=== PATIENT | female | born 2000 | race Caucasian/White ===

== ENCOUNTER 2020-11-06 10:21 | Outpatient (CLI) | payer BC, SELFPAY ==
[2020-11-11 00:12] LABS: NIL 0.02 IU/mL; Quantiferon TB Plus, 1T NEGATIVE (NEGATIVE); TB1-NIL <0.00 IU/mL
== END 2020-11-06 10:22 | disposition home or self-care (01) ==
LOC: ANHLAB 10:26
PROVIDERS: PCP Internal Medicine; Visit Provider Nurse Practitioner
DX: Z11.1 Encounter for screening for respiratory tuberculosis (principal)
CPT/HCPCS: 36415; 86480

== ENCOUNTER 2023-07-06 11:47 | Outpatient (CLI) | payer BC, SELFPAY ==
--- NOTE | ~2023-07-06 | MMUS_ITS ---
EXAMINATION: MM diagnostic re BI w [place], US breast RT limited HISTORY: Erythema, tenderness, lump for a few weeks, diminishing in size. (I was asked to review the completed diagnostic bilateral mammographic views performed after a right breast targeted ultrasound examination, while the initial radiologist was occupied with a special pro cedure.) TECHNIQUE: ML, MLO and CC 3-D tomosynthesis images of both breasts were performed and synthetic 2-D i mages were generated. CAD analysis was submitted and interpreted. High resolution targeted right 5:00 periareolar breast ultrasound was performed. COMPARISON: 05/04/2014 complete bilateral breast ultrasound examination, reported normal. BREAST PARENCHYMAL COMPOSITION: The breasts are extremely dense, which lowers the sensitivity of mamm ography. FINDINGS: MAMMOGRAPHIC FINDINGS: There is mild focal skin thickening in the right inferior periareolar area compared to the left. Otherwise no suspicious mass or architectural distortion, malignant calcification, skin thickening or retraction is detected. ULTRASOUND: At the area of clinical complaint at the right 5:00 periareolar area there is an approximately 13 x 8 .5 by 20 mm irregular hypoechoic area with central approximately 4 x 8 mm more sonolucent area with t hrough transmission prominent posterior enhancement, suggesting this is relatively cystic or fluid in nature. Abscess is considered unlikely. The history indicates that there has been some decrease in s ize which would further support benign process, in addition to the patient's relatively young age. Consider treatment for breast abscess with follow-up ultrasound imaging after an appropriate interval . IMPRESSION: 1. BI-RADS Category 3: Probably benign finding. Probable breast abscess at 5:00 subareolar area 2. Short-term follow-up ultrasound examination is recommended after appropriate medical therapy. BI-RADS category 3, probably benign findings. Reviewed, dictated and finalized at location [facility]. IMPRESSION: 1. BI-RADS Category 3: Probably benign finding. Probable breast abscess at 5:00 subareolar area 2. Short-term follow-up ultrasound examination is recommended after appropriate medical therapy. BI-RADS category 3, probably benign findings.
== END 2023-07-06 11:48 ==
PROVIDERS: PCP Nurse Practitioner; Visit Provider Nurse Practitioner
DX: N63.10 Unspecified lump in the right breast, unspecified quadrant (principal); R92.8 Other abnormal and inconclusive findings on diagnostic imaging of breast
CPT/HCPCS: 76642; 77062; 77066; G0279

== ENCOUNTER 2023-07-13 09:27 | Outpatient (CLI) | payer BC, SELFPAY ==
--- NOTE | ~2023-07-13 | US_ITS ---
US breast RT limited DATE: 07/13/2023 09:58 INDICATION: Erythema, tenderness and lump of right breast; patient finished recently of course of ant ibiotics. TECHNIQUE: Real-time and color flow imaging targeted area clinical complaint at 3-5:00 subareolar are a COMPARISON: 07/06/2023 diagnostic right mammogram and limited right breast ultrasound FINDINGS: There is a complex irregular lesion in the 3-5:00 subareolar area at the area of clinical c omplaint, with surrounding prominent color flow signal consistent with surrounding vascularity, with through transmission posterior enhancement, likely due to abscess and phlegmon. The lesion measures u p to 1.3 cm x 2.5 x 2.6 cm dimension, increased in size since 07/06/2023. IMPRESSION: Complex 300 and 5:00 subareolar lesion with surrounding prominent vascularity, with throu gh transmission posterior enhancement, likely due to mixed abscess and phlegmon Reviewed, dictated and finalized at [facility]. Reviewed, dictated and finalized at location A. IMPRESSION: Complex 300 and 5:00 subareolar lesion with surrounding prominent v ascularity, with through transmission posterior enhancement, likely due to mixe d abscess and phlegmon
== END 2023-07-13 09:28 ==
PROVIDERS: PCP Nurse Practitioner; Visit Provider Nurse Practitioner
DX: R92.8 Other abnormal and inconclusive findings on diagnostic imaging of breast (principal)
CPT/HCPCS: 76642

== ENCOUNTER 2023-07-29 14:03 | Outpatient (NON) | payer BC, SELFPAY | END 2023-07-29 14:04 | disposition home or self-care (01) | LOC: ANHLAB 14:05 | PROVIDERS: PCP Nurse Practitioner; Visit Provider Surgery | DX: N61.0 Mastitis without abscess (principal); N61.1 Abscess of the breast and nipple | CPT/HCPCS: 87070; 87075; 87205 ==